=== PATIENT | female | born 1990 | race Caucasian/White ===

== ENCOUNTER 2019-04-10 18:25 | Emergency (ER) | payer OTHER ==
--- NOTE | 2019-04-10 19:53 | RAD ---
RIGHT ANKLE 3 VIEWS: Date: 04/10/19 HISTORY: Injury. FINDINGS: Soft tissue swelling is seen laterally. No evidence of fracture. IMPRESSION: No evidence of fracture. POS: [facility]
== END 2019-04-10 19:50 | disposition home or self-care (01) ==
LOC: ERS 18:25
DX: S93.401A Sprain of unspecified ligament of right ankle, initial encounter (principal); F41.9 Anxiety disorder, unspecified; F32.9 Major depressive disorder, single episode, unspecified; X50.1XXA Overexertion from prolonged static or awkward postures, initial encounter

== ENCOUNTER 2019-07-05 20:42 | Emergency (ER) | payer OTHER ==
[~2019-07-05 20:42] MED LIST: Iopamidol 370 76% 100 ML VIAL ONE
[2019-07-05 22:13] LABS: #Basophils 0.1 thou/uL (0.0-0.2); #Eosinphils 0.1 thou/uL (0.0-0.7); #Lymphocytes 2.9 thou/uL (1.20-3.40); #Monocytes 0.4 thou/uL (0.11-0.59); #Neutrophils 5.7 thou/uL (1.40-6.50); %Basophils 0.6 % (0.0-1.0); %Lymphocytes 31.8 % (21.0-51.0); %Monocytes 4.8 % (0.0-10.0); %Neutrophils 61.9 % (42.0-75.0); Hemoglobin 13.6 g/dL (12.0-16.0); Mean Corpuscular HGB CONC 34.9 g/dL (32.0-36.0); Mean Corpuscular Hemoglobin 30.7 pg (27.0-31.0); Mean Corpuscular Volume 88.1 fL (78.0-98.0); Mean Platelet Volume 5.9 fL (7.4-10.4); Platelet Count 298 thou/uL (130-400); RBC Distribution Width 11.8 % (11.5-14.5); Red Blood Cell (RBC) Count 4.42 mill/uL (4.20-5.40); White Blood Cell (WBC) Count 9.2 thou/uL (4.8-10.8)
[2019-07-05 22:32] LABS: ALT (SGPT) 16 U/L (8-55); AST (SGOT) 15 U/L (5-34); Albumin 4.3 g/dL (3.5-5.0); Alkaline Phosphatase 87 U/L (40-150); Anion Gap 14 mmol/L (10-20); BUN (Urea Nitrogen) 8 mg/dL (7.0-18.7); Bilirubin, Total 0.6 mg/dL (0.2-1.2); Calc. Creatinine Clearance 0 mL/min (70-130); Calcium 9.2 mg/dL (7.8-10.44); Carbon Dioxide 18 mmol/L (22-29); Chloride 108 mmol/L (98-107); Estimated GFR-MDRD 80; Globulin 2.9 g/dL (2.4-3.5); Glucose 97 mg/dL (70-105); Potassium 3.9 mmol/L (3.5-5.1); Protein, Total 7.2 g/dL (6.0-8.3); Sodium 136 mmol/L (136-145)
--- NOTE | 2019-07-05 23:18 | CT ---
CT neck soft tissues with contrast INDICATION: Right-sided neck swelling COMPARISON: None FINDINGS: A few mildly prominent lymph nodes are seen within the upper neck. The parotid, submandibul ar and thyroid glands are normal appearing. The visualized aerodigestive tract is normal-appearing. The prevertebral soft tissue is normal-appearing. The paranasal sinuses are clear. Because intracrani al contents are unremarkable appearing. Lung apices are clear. No acute osseous abnormality is evident. IMPRESSION: Nonspecific mildly prominent lymph nodes of the upper neck. No drainable fluid collection is grossly evident.
== END 2019-07-05 23:55 | disposition home or self-care (01) ==
LOC: ERS 20:42
DX: G43.909 Migraine, unspecified, not intractable, without status migrainosus (principal); F41.9 Anxiety disorder, unspecified; F32.9 Major depressive disorder, single episode, unspecified; Z79.899 Other long term (current) drug therapy
CPT/HCPCS: 36415; 70491; 80053; 85025; Q9967

== ENCOUNTER 2019-12-10 00:03 | Emergency (ER) | payer OTHER | END 2019-12-10 01:05 | disposition short-term general hospital (02) | LOC: ERS 00:03 → EEVIPCON 00:03 → ERS 01:05 | DX: Z04.71 Encounter for examination and observation following alleged adult physical abuse (principal); R51 Headache; F41.9 Anxiety disorder, unspecified; F32.9 Major depressive disorder, single episode, unspecified; Z79.899 Other long term (current) drug therapy; Y04.0XXA Assault by unarmed brawl or fight, initial encounter | CPT/HCPCS: 99284 ==